=== PATIENT | male | born 1950 | race Caucasian/White ===

== ENCOUNTER 2017-01-17 15:47 | Observation (INO) | payer MEDICARE, BC ==
[~2017-01-17] VITALS: Ht 175.3 cm; Wt 67.2 kg
[2017-01-19] MEDS ORDERED: AVODART0.5 MG PO (08:36)
[2017-01-19] MEDS ORDERED: MICRO-K DPS10 MEQ PO (08:36)
[2017-01-19] MEDS ORDERED: FLOMAX DPS0.4 MG PO (08:36)
[2017-01-19] MEDS ORDERED: VITAMIN B-12500 MCG PO (08:37)
[2017-01-19] MEDS ORDERED: VALTREX DPS500 MG PO (08:37)
[2017-01-19] MEDS ORDERED: ATENOLOL-CHLOR1 EACH PO (08:37)
[2017-01-19] MEDS ORDERED: SYNTHROID DPS0.05 MG PO (08:37)
[2017-01-19] MEDS ORDERED: LIPITOR DPS10 MG PO (08:37)
== END 2017-01-18 12:54 | disposition home or self-care (01) ==
LOC: 4PCU 15:47
PROVIDERS: ADMIT Internal Medicine
DX: R63.4 Abnormal weight loss (principal); R63.0 Anorexia; R47.81 Slurred speech; Z79.899 Other long term (current) drug therapy